=== PATIENT | male | born 1970 | race Caucasian/White ===

== ENCOUNTER 2024-02-21 09:12 | Outpatient (CLI) | payer OTHER, SELFPAY | END 2024-02-21 09:13 | disposition home or self-care (01) | PROVIDERS: PCP Family Medicine; Visit Provider Family Medicine | DX: E78.00 Pure hypercholesterolemia, unspecified (principal); Z13.228 Encounter for screening for other metabolic disorders; Z12.5 Encounter for screening for malignant neoplasm of prostate | CPT/HCPCS: 80053; 80061; G0103 ==

== ENCOUNTER 2025-05-31 08:37 | Outpatient (CLI) | payer OTHER, SELFPAY | END 2025-05-31 08:38 | disposition home or self-care (01) | LOC: NFLDREF 06-04 08:47 | PROVIDERS: PCP Family Medicine; Referring Provider Family Medicine; Visit Provider Family Medicine | DX: E78.00 Pure hypercholesterolemia, unspecified (principal); E88.09 Other disorders of plasma-protein metabolism, not elsewhere classified; Z12.5 Encounter for screening for malignant neoplasm of prostate | CPT/HCPCS: 80053; 80061; G0103 ==